=== PATIENT | male | born 1945 | race American Indian/Alaskan Native ===

== ENCOUNTER 2021-02-24 23:52 | Emergency (ER) | payer SELFPAY ==
--- NOTE | 2021-02-25 00:16 | Emergency Department Report ---
ED Shortness of Breath HPI - General Chief Complaint: Dyspnea/Respdistress Stated Complaint: SOB/CHEST PAIN Time Seen by Provider: 02/25/21 00:12 Source: patient, family, EMS Mode of arrival: Stretcher Limitations: No Limitations - History of Present Illness Initial Comments: 75-year-old male, history of anemia, CAD with stents, presents to the ED with complaint of shortness of breath. Patient states he was visiting with his niece, drinking a beer, when he began feeling short of breath all of a sudden. Patient reported some associated dull, pleuritic, chest pain, but states "it wasn't heart attack pain." Patient denies any nausea, vomiting, cough, fever, diaphoresis, leg pain or swelling. Patient states he has not received his COVID-19 vaccine yet. Patient reports tobacco use. Patient states he is currently feeling much better at this time and is able to breathe. MD Complaint: shortness of breath -: hour(s) (1) Severity: moderate Quality: dull Consistency: now resolved Improves With: nothing Worsens With: nothing Associated Symptoms: chest pain Treatments Prior to Arrival: oxygen - Related Data Home Oxygen Therapy: No Allergies Allergy/AdvReac Type Severity Reaction Status Date / Time No Known Allergies Allergy Unverified 02/25/21 00:08 ED Review of Systems ROS: Stated complaint: SOB/CHEST PAIN Other details as noted in HPI Comment: All other systems reviewed and negative Constitutional: denies: chills, fever Respiratory: SOB at rest. denies: cough Cardiovascular: chest pain Gastrointestinal: denies: nausea, vomiting Musculoskeletal: other (Denies leg pain or swelling) ED Past Medical Hx - Past Medical History Previous Medical History?: Yes Hx Hypertension: Yes Hx Heart Attack/AMI: Yes Additional medical history: high cholesterol - Surgical History Past Surgical History?: Yes Additional Surgical History: foot sx - Social History Smoking Status: Current Every Day Smoker Substance Use Type: Alcohol ED Physical Exam - General Limitations: No Limitations General appearance: alert, in no apparent distress - Head Head exam: Present: atraumatic, normocephalic - Eye Eye exam: Present: normal appearance, EOMI - ENT ENT exam: Present: mucous membranes moist - Neck Neck exam: Present: normal inspection - Respiratory Respiratory exam: Present: normal lung sounds bilaterally. Absent: respiratory distress - Cardiovascular Cardiovascular Exam: Present: regular rate, normal rhythm - GI/Abdominal GI/Abdominal exam: Present: soft. Absent: distended, tenderness - Extremities Exam Extremities exam: Present: normal inspection. Absent: pedal edema, calf tende rness - Neurological Exam Neurological exam: Present: alert, oriented X3 - Psychiatric Psychiatric exam: Present: normal affect, normal mood - Skin Skin exam: Present: warm, dry, intact, normal color ED Course Vital Signs 02/25/21 02/25/21 02/25/21 00:06 01:00 02:00 Temperature 98.2 F Pulse Rate 87 82 71 Respiratory 16 15 13 Rate Blood Pressure 133/63 143/65 Blood Pressure 175/78 [Right] O2 Sat by Pulse 100 100 100 Oximetry 02/25/21 02/25/21 04:00 04:57 Temperature 98.2 F Pulse Rate 72 Respiratory 19 Rate Blood Pressure 124/62 Blood Pressure 124/62 [Right] O2 Sat by Pulse 100 100 Oximetry ED Medical Decision Making - Lab Data Result diagrams: 02/25/21 00:19 02/25/21 00:19 - EKG Data -: EKG Interpreted by Oh EKG shows normal: sinus rhythm, axis, intervals, QRS complexes, ST-T waves Rate: normal - EKG Data Interpretation: no acute changes - Radiology Data Radiology results: report reviewed, image reviewed - Medical Decision Making 75-year-old male presents to ED with shortness of breath. Patient is in no respiratory distress. O2 sats are normal. He reported some associated chest pain, currently resolved. EKG shows no ST changes. Troponin negative x2. Chest x-ray is unremarkable. Patient will be discharged at this time. He is advised to follow-up on an outpatient basis. Return precautions given. - Differential Diagnosis ACS, PE, pneumonia, CHF Critical care attestation.: If time is entered above; I have spent that time in minutes in the direct care of this critically ill patient, excluding procedure time. ED Disposition Clinical Impression: Dyspnea Disposition: DC-01 TO HOME OR SELFCARE Is pt being admited?: No Condition: Stable Instructions: Shortness of Breath, Adult, [id number] Referrals: [facility] [Provider Group] - 3-5 Days Time of Disposition: 01:57 HEART Score - HEART Score History: Slightly suspicious EKG: Normal Age: > 65 Risk factors: > 3 risk factors or hx of atherosclerotic disease Troponin: Troponin T < 0.010 ng/mL (0.00-0.029) 02/25/21 03:27 Troponin: < normal limit HEART Score: 4
--- NOTE | 2021-02-25 00:48 | XRay Report ---
CHEST 1 VIEW INDICATION: sob COMPARISON: FINDINGS: SUPPORT DEVICES: None. HEART / MEDIASTINUM: No significant abnormality. LUNGS / PLEURA: No significant pulmonary or pleural abnormality. No pneumothorax. ADDITIONAL FINDINGS: IMPRESSION: 1. No acute cardiopulmonary disease Signer Name: Jovani Cole MD Signed: 02/25/2021 12:44 AM Workstation Name: [id number]
[2021-02-25 00:58] LABS: Mean Corpuscular HGB Conc 30 % (32-34); Mean Corpuscular Volume 70 fl (84-94); Platelet Count 328 K/mm3 (140-440); Red Blood Count 4.05 M/mm3 (3.65-5.03)
[2021-02-25 01:10] LABS: INR 1.01 (0.87-1.13)
[2021-02-25 01:11] LABS: Hematocrit 28.5 % (35.5-45.6); Hemoglobin 8.5 gm/dl (11.8-15.2); Partial Thromboplastin Time 31.8 Sec. (24.2-36.6); Red Cell Distribution Width 24.1 % (13.2-15.2)
[2021-02-25 01:17] LABS: BUN/Creatinine Ratio 13; Blood Urea Nitrogen 10 mg/dL (9-20); Calcium 9.5 mg/dL (8.4-10.2); Hemolysis Index 8
[2021-02-25 03:04] LABS: Total Cells Counted 100
[2021-02-25 03:05] LABS: Anisocytosis 1+; Platelet Estimate Consistent w Auto
[2021-02-25 04:03] VITALS: BP 124/62
--- NOTE | 2021-02-27 10:09 | Electrocardiograph Report ---
[facility] Test Date: 2021-02-25 Test Time: 00:15:10 Pat Name: Shannan KRAMER Department: Room: Gender: M [employer]: JOURDAN : 1945 Requested By: ADRIANA BRISENO Order Number: [id number] Reading MD: Bernard Tejada Measurements Intervals [place] Rate: 79 P: 63 MI: 127 QRS: 65 QRSD: 105 T: 30 QT: 365 QTc: 419 Interpretive Statements Sinus rhythm Probable left atrial enlargement No previous ECG available for comparison Electronically Signed On 02-27-2021 10:09:02 EDT by Bernard Tejada
== END 2021-02-25 04:59 | disposition home or self-care (01) ==
LOC: ED 23:52
DX: R06.00 Dyspnea, unspecified (principal); R07.89 Other chest pain; R06.02 Shortness of breath; I10 Essential (primary) hypertension; E78.00 Pure hypercholesterolemia, unspecified; F17.200 Nicotine dependence, unspecified, uncomplicated; Z72.89 Other problems related to lifestyle; Z79.899 Other long term (current) drug therapy
CPT/HCPCS: 36415; 71045; 80048; 83880; 84484; 85007; 85025; 85379; 85610; 85730; 93005; 99284